=== PATIENT | female | born 1980 | race Caucasian/White ===

== ENCOUNTER 2017-07-02 15:23 | Emergency (ER) | payer OTHER ==
[~2017-07-02] VITALS: Ht 167.6 cm; Wt 124.6 kg
[~2017-07-02 15:23] MED LIST: ASPIR 8181 M1 PO; IBUPROFEN800 MG PO; MACROBID100 MG PO; PRENATAL TABLE1 EAC3 PO; PROMETHAZINE HC25 M1 PO; SUDAFED PE PRE1 EAC3 PO; TYLENOL EXTRA500 MG PO; ZOFRAN ODT4 MG PO
[2017-07-02 18:03] LABS: HEMATOCRIT 46.1 % (36.0-46.0); HEMOGLOBIN 15.9 G/DL (11.9-15.5); MCH 34.4 PG (29.0-34.0); MCHC 34.5 G/DL (30.0-36.0); MCV 99.8 FL (83-99); PLATELET COUNT 343 K/uL (156-360); RBC DIS.WIDTH-CV 13.2 % (11.8-14.6); RBC DIS.WIDTH-SD 48.5 % (39-53); RED BLOOD COUNT 4.62 M/uL (3.80-5.20); WHITE BLOOD COUNT 14.2 K/uL (4.1-10.2)
[2017-07-02 18:12] LABS: ALBUMIN 4.8 g/dL (3.2-4.8); CHLORIDE 104 mEq/L (99-109); POTASSIUM 4.4 mEq/L (3.7-5.4); SODIUM 140 mEq/L (136-147)
[2017-07-02 18:14] LABS: GLUCOSE 104 mg/dL (70-99); TOTAL PROTEIN 8.5 g/dL (6.4-8.3)
[2017-07-02 18:16] LABS: TOTAL BILIRUBIN 0.7 mg/dL (0.0-1.0)
[2017-07-02 18:16] LABS: APPEARANCE SL.HAZY ((CLEAR)); BILIRUBIN NEGATIVE; BLOOD SMALL; COLOR YELLOW ((YELLOW)); GLUCOSE (STRIP) NEGATIVE; KETONES NEGATIVE; LEUKOCYTES NEGATIVE; NITRITE NEGATIVE; PROTEIN (STRIP) NEGATIVE; SPECIFIC GRAVITY 1.019 (1.000-1.030); UROBILINOGEN 0.2 MG/DL (0.2-1.0)
[2017-07-02 18:18] LABS: ALKALINE PHOSPHATASE 67 IU/L (3-129); CREATININE 0.9 mg/dL (0.6-1.3); GFR ESTIMATE (CALCULATED) > 59 mL/min/
[2017-07-02 18:19] LABS: UREA NITROGEN (BUN) 16 mg/dL (9-23)
[2017-07-02 18:20] LABS: AST (GOT) 331 IU/L (2-34)
[2017-07-02 18:21] LABS: ALT (GPT) 315 IU/L (3-49); LIPASE 14 U/L (1.0-51.0)
[2017-07-02 18:27] LABS: QUANTITATIVE HCG < 4.0 MIU/ML
[2017-07-02 18:36] LABS: BACTERIA NONE SEEN /HPF; EPITHELIAL CELLS 2+ /HPF; HYALINE CASTS 0-5 /LPF; MUCUS TRACE /LPF; RED BLOOD CELLS 0-5 /HPF (0-5); UCUL ADDED? NO; WHITE BLOOD CELLS 0-5 /HPF (0-5)
[2017-07-02] MEDS ORDERED: MOTRIN600 MG PO (20:09)
[2017-07-02] MEDS ORDERED: LIDODERM 5% P1 PATCH TD (20:09)
[2017-07-02] MEDS ORDERED: FLEXERIL10 MG PO (20:09)
[2017-07-02 20:15] VITALS: BP 137/82
== END 2017-07-02 20:15 | disposition home or self-care (01) ==
LOC: EME 15:23
PROVIDERS: Physician Assistant
DX: S29.012A Strain of muscle and tendon of back wall of thorax, initial encounter (principal); K76.0 Fatty (change of) liver, not elsewhere classified; Z87.891 Personal history of nicotine dependence; Z88.2 Allergy status to sulfonamides
CPT/HCPCS: 71046; 76705; 80053; 81003; 83690; 84702; 85027; 99281; 99283; J1885

== ENCOUNTER 2017-07-10 10:56 | Emergency (ER) | payer OTHER ==
[~2017-07-10] VITALS: Ht 172.7 cm; Wt 129.8 kg
[~2017-07-10 10:56] MED LIST changes: +FLEXERIL10 MG PO; +LIDODERM 5% P1 PATCH TD; +MOTRIN600 MG PO
[2017-07-10 11:43] LABS: D-DIMER ELISA < 150.00 ng/mLDDU (<230)
[2017-07-10 11:46] LABS: CHLORIDE 107 mEq/L (99-109); POTASSIUM 3.9 mEq/L (3.7-5.4); SODIUM 139 mEq/L (136-147)
[2017-07-10 11:47] LABS: GLUCOSE 111 mg/dL (70-99)
[2017-07-10 11:51] LABS: CREATININE 0.8 mg/dL (0.6-1.3); GFR ESTIMATE (CALCULATED) > 59 mL/min/
[2017-07-10 11:52] LABS: UREA NITROGEN (BUN) 10 mg/dL (9-23)
[2017-07-10 11:55] LABS: BASOPHIL (%) 0.7 % (0-1); BASOPHIL COUNT 0.1 K/uL (0-0.1); EOSINOPHIL COUNT 0.4 K/uL (0-0.3); HEMATOCRIT 39.5 % (36.0-46.0); IMMATURE GRANULOCYTE (%) 0.3 % (0.0-0.7); LYMPHOCYTE (%) 26.9 % (15-42); LYMPHOCYTE COUNT 2.4 K/uL (1.0-2.8); MCH 34.2 PG (29.0-34.0); MCHC 34.4 G/DL (30.0-36.0); MCV 99.2 FL (83-99); MONOCYTE (%) 6.2 % (3-12); MONOCYTE COUNT 0.5 K/uL (0-0.8); NEUTROPHIL (%) 60.9 % (45-76); NEUTROPHIL COUNT 5.3 K/uL (1.8-6.4); PLATELET COUNT 276 K/uL (156-360); RBC DIS.WIDTH-CV 12.8 % (11.8-14.6); RBC DIS.WIDTH-SD 46.8 % (39-53); RED BLOOD COUNT 3.98 M/uL (3.80-5.20); WHITE BLOOD COUNT 8.7 K/uL (4.1-10.2)
[2017-07-10 11:56] LABS: HEMOGLOBIN 13.6 G/DL (11.9-15.5)
[2017-07-10 11:57] LABS: TROP-I INTERPRETATION NEGATIVE; TROPONIN-I < 0.01 ng/mL (0.0-0.30)
[2017-07-10 14:50] LABS: TROP-I INTERPRETATION NEGATIVE; TROPONIN-I < 0.01 ng/mL (0.0-0.30)
[2017-07-10 15:23] VITALS: BP 141/95
== END 2017-07-10 15:24 | disposition home or self-care (01) ==
LOC: EME 10:56
PROVIDERS: Emergency Medicine
DX: R07.89 Other chest pain (principal); I10 Essential (primary) hypertension; E78.5 Hyperlipidemia, unspecified; Z87.891 Personal history of nicotine dependence; Z88.2 Allergy status to sulfonamides
CPT/HCPCS: 71045; 80048; 84484; 85025; 85379; 93005; 99281; 99284

== ENCOUNTER 2017-07-24 22:39 | Emergency (ER) | payer OTHER ==
[~2017-07-24] VITALS: Ht 167.6 cm; Wt 126.1 kg
[2017-07-24 23:27] LABS: HEMATOCRIT 44.8 % (36.0-46.0); HEMOGLOBIN 15.3 G/DL (11.9-15.5); MCH 33.8 PG (29.0-34.0); MCHC 34.2 G/DL (30.0-36.0); MCV 99.1 FL (83-99); RBC DIS.WIDTH-CV 12.7 % (11.8-14.6); RBC DIS.WIDTH-SD 45.5 % (39-53); RED BLOOD COUNT 4.52 M/uL (3.80-5.20); WHITE BLOOD COUNT 15.3 K/uL (4.1-10.2)
[2017-07-24 23:31] LABS: PLATELET COUNT 438 K/uL (156-360)
[2017-07-24 23:35] LABS: CHLORIDE 103 mEq/L (99-109); POTASSIUM 4.1 mEq/L (3.7-5.4); SODIUM 138 mEq/L (136-147)
[2017-07-24 23:36] LABS: GLUCOSE 97 mg/dL (70-99)
[2017-07-24 23:40] LABS: CREATININE 0.8 mg/dL (0.6-1.3); GFR ESTIMATE (CALCULATED) > 59 mL/min/
[2017-07-24 23:41] LABS: UREA NITROGEN (BUN) 12 mg/dL (9-23)
[2017-07-25] MEDS ORDERED: TRAMADOL HCL50 MG PO (01:08)
[2017-07-25 01:23] VITALS: BP 165/132
== END 2017-07-25 01:23 | disposition home or self-care (01) ==
LOC: EME 22:39
DX: S22.32XA Fracture of one rib, left side, initial encounter for closed fracture (principal); X58.XXXA Exposure to other specified factors, initial encounter; Y93.89 Activity, other specified; I10 Essential (primary) hypertension; E78.5 Hyperlipidemia, unspecified; K76.0 Fatty (change of) liver, not elsewhere classified; Z87.891 Personal history of nicotine dependence; Z88.2 Allergy status to sulfonamides
CPT/HCPCS: 71101; 80048; 85027; 99281; 99283; J1885